=== PATIENT | female | born 1990 | race Caucasian/White ===

== ENCOUNTER 2018-06-28 15:03 | Observation (INO) | payer OTHER ==
[2018-06-28] MEDS ORDERED: Sodium Chloride 0.9% 10 ML Syringe FLUSH PRN (15:20)
[2018-06-28] MEDS ORDERED: Lactated Ringers 1,000 ML IV SCH (15:30)
[2018-06-28] MEDS ORDERED: Morphine 10 MG/ML Syringe IM ONE (16:09)
[2018-06-28] MEDS ORDERED: hydrOXYzine HCl 25 MG/ML SDV IM ONE (16:10)
[2018-06-28] MEDS ORDERED: cefOXitin 2 GM in Premix Bag 1 BAG IV SCH (16:15)
--- NOTE | 2018-06-28 16:21 | PCM.SN ---
- Free Text/Narrative Note: 06-28-18 [id number] Called to OB regarding a patient with difficult IV accessibility. Multiple attempts by the nursing staff were made with no success. Left forearm chloraprepped. Skin localized with 1% buffered lidocaine. A 20 ga 1.88" IV catheter was placed x1 attempt to left forearm under ultrasound guidance. 4ml of blood was aspirated for lab testing. Catheter flushed well. Patient tolerated well. 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
[2018-06-28] MEDS ORDERED: Betamethasone Acetate/Betamethasone Sod Phosphate 30 MG/5 ML MDV IM ONE (16:33)
--- NOTE | 2018-06-28 16:44 | PCM.LDHP ---
L&D History of Present Illness - General Date of Service: 06/28/18 Admit Problem/Dx: Patient Status Order with Admit Dx/Problem 06/28/18 15:21 Patient Status [ADT] Routine Admission Diagnosis/Problem Admission Diagnosis/Problem Source of Information: Patient History Limitations: Reports: No Limitations - History of Present Illness Introduction:: 27 y/o LMP approximately 01/25/2018 and VINAY by patient history 2017. By USG just obtained VINAY approximately 09/01/2018 at EGA 30wd (late USG). Patient presented to labor and delivery with no care. Just recently moved to [facility]. Patient had been seen 1 time in [facility] prior to moving here approximately 1 month ago. She stated she had been on Macrobid 100 mg by mouth twice a day for a month because of a "urinary tract infection" approximately 2 hours ago patient developed onset of abdominal cramping in the lower abdomen no nausea and vomiting. No right or left flank pain. No vaginal bleeding. Will obtain urinalysis when patient is able to void. Will strain urine's encase possible urinary tract stones. Urinalysis microscopic and culture ordered. New OB labs ordered. No history of gush of fluid. Ultrasound report pending but estimated gestational age by this ultrasound obtained today 30 weeks and 5 days VINAY approximately 09/01/18. Amnionic fluid index 15+ cervix 3 cm plus in length and nurse exam revealed cervix closed. Patient on presentation to labor and delivery having contractions every 1-2 minutes. Will give IV hydration and by mouth hydration. Patient started on Mefoxin 2 g initially and will continue IV every 6 hours. For pain relief morphine 5 mg and Vistaril 25 mg given IM at approximately 1620 hrs. Will repeat this every 6 hours as needed for pain relief. With holding subcutaneous terbutaline at present time because of patient's tachycardia. Patient has no history of labor with previous pregnancies. Both deliveries were term pregnancies. Group B strep was collected at time of pelvic exam before the pelvic examination was performed. Because of her contractions will give Celestone 12 mg IM now and repeat in 24 hours. Will plan new OB visit in 1 week. Discussed with patient and need to transfer to [place] if cervical changes her contractions do not subside with treatment. Pain Score: 10 Improves with: Reports: None Worsens with: Reports: None Associated Symptoms: Reports: N - Related Data Allergies/Adverse Reactions: Allergies Allergy/AdvReac Type Severity Reaction Status Date / Time No Known Allergies Allergy Verified 06/28/18 16:09 H&P Review of Systems - Review of Systems: Review Of Systems: See Below General: Reports: No Symptoms HEENT: Reports: No Symptoms Pulmonary: Reports: No Symptoms Cardiovascular: Reports: No Symptoms Gastrointestinal: Reports: Abdominal Pain (Bilateral suprapubic pain no CVA pain no right upper quadrant pain no mid right abdominal pain.) Genitourinary: Reports: Pain (Pain with urination no blood in the urine.) Musculoskeletal: Reports: No Symptoms Skin: Reports: No Symptoms Psychiatric: Reports: No Symptoms Neurological: Reports: No Symptoms Hematologic/Lymphatic: Reports: No Symptoms Immunologic: Reports: No Symptoms L&D Exam - Exam Exam: See Below - Vital Signs Weight: 135 lb - OB Specific Fundal Height In cm: 30 Contraction Intensity: Mild to Moderate Movement: Active Heart Tones: Present Heart Tones per Min: 160 Heart Rate (FHR) Variability: Moderate (6-25 bmp) Presentation: Vertex - Miller Score Miller Score Cervix Position: Anterior Miller Score Consistency: Soft Miller Score Effacement: 31-50% Miller Score Dilation: 1-2 cm Miller Score 's Station: -3 Miller Score Total: 6 - Exam General: Alert, Oriented HEENT: Conjunctiva Clear, Mucosa Moist & [place], PERRLA Neck: Supple, Trachea Midline Lungs: Clear to Auscultation, Normal Respiratory Effort Cardiovascular: Regular Rate, Regular Rhythm GI/Abdominal Exam: Normal Bowel Sounds, Soft, Non-Tender Genitourinary: Normal external exam Back Exam: Normal Inspection, Full Range of Motion Extremities: Normal Inspection, Normal Range of Motion, Non-Tender, No Pedal Edema, Normal Capillary Refill Skin: Warm, Dry, Intact Neurological: Reflexes Equal Bilateral Psychiatric: Alert, Normal Affect, Normal Mood - Patient Data Lab Results Last 24 hrs: Laboratory Results - last 24 hr 06/28/18 Range/Units 16:03 WBC 7.24 (3.98-10.04) K/mm3 RBC 4.26 (3.98-5.22) M/mm3 Hgb 12.5 (11.2-15.7) gm/L Hct 38.3 (34.1-44.9) % MCV 89.9 (79.4-94.8) fl MCH 29.3 (25.6-32.2) pg MCHC 32.6 (32.2-35.5) g/dl RDW Std Deviation 44.7 (36.4-46.3) fL Plt Count 182 (182-369) K/mm3 MPV 9.3 L (9.4-12.3) fl Neut % (Auto) 92.4 H (34.0-71.1) % Lymph % (Auto) 6.1 L (19.3-51.7) % Hardy % (Auto) 0.3 L (4.7-12.5) % Eos % (Auto) 0.4 L (0.7-5.8) Baso % (Auto) 0.1 (0.1-1.2) % Neut # (Auto) 6.69 H (1.56-6.13) K/mm3 Lymph # (Auto) 0.44 L (1.18-3.74) K/mm3 Hardy # (Auto) 0.02 L (0.24-0.36) K/mm3 Eos # (Auto) 0.03 L (0.04-0.36) K/mm3 Baso # (Auto) 0.01 (0.01-0.08) K/mm3 Result Diagrams: 06/28/18 16:03 - Problem List (1) 30 weeks gestation of SNOMED Code(s): 90082143 ICD Code: Z3A.30 - 30 WEEKS GESTATION OF Status: Acute Current Visit: Yes (2) Threatened labor, antepartum SNOMED Code(s): 067493967 ICD Code: O47.00 - FALSE LABOR BEFORE 37 COMPLETED WEEKS OF GEST, UNSP TRI Status: Acute Current Visit: Yes Problem List Initiated/Reviewed/Updated: No Orders Last 24hrs: Active Orders 24 hr Category Date Time Status Patient Status [ADT] Routine ADT 06/28/18 15:21 Active Non Stress Test [RC] PER UNIT ROUTINE Care 06/28/18 15:21 Active Peripheral IV Care [RC] . DIRECTED Care 06/28/18 15:22 Active Vaginal Exam [RC] PRN Care 06/28/18 15:21 Active Vital Signs [RC] PER UNIT ROUTINE Care 06/28/18 15:21 Active OB Ltd 1 or More Fetus [US] Stat Exams 06/28/18 15:29 Ordered Retroperitoneal Comp [US] Stat Exams 06/28/18 15:29 Ordered CBC WITH AUTO DIFF [HEME] Urgent Lab 06/28/18 16:03 Results DRUG SCREEN, URINE [URCHEM] Stat Lab 06/28/18 15:20 Ordered GROUP B STREP BY PCR [MOLEC] Stat Lab 06/28/18 15:40 Received HEPATITIS B SURFACE AG [CHEM] Stat Lab 06/28/18 16:03 Received HIV RAPID SCREEN RLFX COMFIRM [CHEM] Urgent Lab 06/28/18 16:03 Received RAPID PLASMA REAGIN,RPR [CHEM] Stat Lab 06/28/18 16:03 Received RUBELLA ANTIBODY IGG [CHEM] Stat Lab 06/28/18 16:03 Received TYPE AND SCREEN [BBK] Urgent Lab 06/28/18 16:03 Received UA W/MICROSCOPIC [URIN] Stat Lab 06/28/18 15:20 Ordered Betamet Acet/Betamet Na Phos [Celestone Soluspan 6 MG/ Med 06/28/18 16:33 Once ML] 12 mg IM ONETIME ONE Lactated Ringers [Ringers, Lactated] 1,000 ml Med 06/28/18 15:30 Active IV .BOLUS Sodium Chloride 0.9% [Saline Flush] Med 06/28/18 15:20 Active 10 ml FLUSH ASDIRECTED PRN cefOXitin [Mefoxin in Dextrose,Iso-Osm 2 GM/50 ML] 2 gm Med 06/28/18 16:15 Active Premix Bag 1 bag IV .ONETIME OB Panel [OM.PC] Stat Oth 06/28/18 15:20 Ordered Peripheral IV Insertion Adult [OM.PC] Urgent Oth 06/28/18 15:20 Ordered Resuscitation Status Routine Resus Stat 06/28/18 15:20 Ordered Medication Orders Betamethasone Acet/Betameth SodPhos (Celestone Soluspan 6 Mg/Ml) 12 mg IM ONETIME ONE Stop: 06/28/18 16:34 Lactated Ringer's (Ringers, Lactated) 1,000 mls @ 500 mls/hr IV .BOLUS DEBBIE Cefoxitin Sodium 2 gm/ Premix 50 mls @ 100 mls/hr IV .ONETIME DEBBIE Sodium Chloride (Saline Flush) 10 ml FLUSH ASDIRECTED PRN PRN Reason: Keep Vein Open Assessment/Plan Comment:: Observation status. Orders written
--- NOTE | 2018-06-28 16:57 | US ---
Obstetrical ultrasound: Multiple real-time images were obtained. Comparison: No previous studies from current . Dates: Current ultrasound: VINAY 09/01/18, gestational age 30 weeks 5 days presentation: Cephalic Placenta: Anterior with no findings of placenta previa Amniotic fluid: BALDEMAR 15.3 cm Measurements: BPD: 7.43 cm - 29 weeks 6 days Head circumference: 28.92 cm - 31 weeks 6 days Abdominal circumference: 26.62 cm - 30 weeks 5 days Femur length: 5.78 cm - 30 weeks 2 days Estimated weight: 1605 g (3 lbs. 9 oz.) is, estimated weight above the 97th percentile Heart rate: 154 bpm Cervical length: 3.1 cm Impression: 1. Single intrauterine fetus currently cephalic in presentation. Dates as noted above. 2. No complicating process is seen by ultrasound at this time. Anatomic survey was not performed. Diagnostic code #1
--- NOTE | 2018-06-28 16:57 | US ---
Renal ultrasound: Multiple real-time images of the kidneys were obtained. Comparison: No previous renal imaging. Kidneys show no hydronephrosis or mass. Right kidney measures 12.3 cm in length. Left kidney measures 13.6 cm in length. Resistivity indices are normal. Bladder empties completely on postvoid exam. Impression: 1. No abnormality is identified on renal ultrasound exam. Diagnostic code #1
[2018-06-28] MEDS: Lactated Ringers 1,000 ML IV SCH ×2 (17:05→19:48)
[2018-06-28] MEDS ORDERED: hydrOXYzine HCl 25 MG/ML SDV IM PRN (23:00)
[2018-06-28] MEDS ORDERED: Morphine 10 MG/ML Syringe IM PRN (23:00)
[2018-06-28] MEDS: cefOXitin 2 GM in Premix Bag 1 BAG IV SCH (23:46)
[2018-06-29] MEDS: cefOXitin 2 GM in Premix Bag 1 BAG IV SCH ×3 (06:40→12:46)
--- NOTE | 2018-06-29 07:39 | PCM.SN ---
- Free Text/Narrative Note: UDS positive and patient then admitted to Methamphetamine use. Also states she has been using Suboxone as well. Looks and feels better this morning. Will give second dose of Celestone this afternoon. marketing services vice president needs to see patient.
[2018-06-29] MEDS: hydrOXYzine HCl 25 MG Tab PO PRN ×2 (08:59→15:13)
[2018-06-29] MEDS: Lactated Ringers 1,000 ML IV SCH (11:29)
--- NOTE | 2018-06-29 16:23 | PCM.DCSUM1 ---
Discharge Summary - Hospital Course Free Text/Narrative:: Patient admitted for threatened labor Patient admitted to illicit drug use methamphetamine just prior to her onset of symptoms. Contractions have subsided. Patient has been set up with [facility] and seen by renal social worker. Patient has new OB appointment in 1 week Informed patient that threatened labor probably caused by the "Line" of meth she had done prior to onset of symptoms, discussed possible abruptio placentae and and even maternal related to same. Patient states she wants to discontinue using illicit drug and has been seen by [facility] as noted above. Patient states she is willing to have random urine drug screens performed in the clinic and [facility] also planning to do same HPI Initial Comments: Patient admitted for threatened labor Patient admitted to illicit drug use methamphetamine just prior to her onset of symptoms. Contractions have subsided. Patient has been set up with [facility] and seen by renal social worker. Patient has new OB appointment in 1 week Informed patient that threatened labor probably caused by the "Line" of meth she had done prior to onset of symptoms, discussed possible abruptio placentae and and even maternal related to same. Patient states she wants to discontinue using illicit drug and has been seen by [facility] as noted above. Patient states she is willing to have random urine drug screens performed in the clinic and [facility] also planning to do same Brief History: Patient admitted for threatened labor. Patient admitted to illicit drug use methamphetamine just prior to her onset of symptoms. Contractions have subsided. Patient has been set up with [facility] and seen by renal social worker. Patient has new OB appointment in 1 week. Informed patient that threatened labor probably caused by the "Line" of meth she had done prior to onset of symptoms, discussed possible abruptio placentae and and even maternal related to same. Patient states she wants to discontinue using illicit drug and has been seen by [facility] as noted above. Patient states she is willing to have random urine drug screens performed in the clinic and [facility] also planning to do same Diagnosis: Stroke: No - Discharge Data Discharge Date: 06/29/18 Discharge Disposition: Home, Self-Care 01 Condition: Good - Discharge Diagnosis/Problem(s) (1) 30 weeks gestation of SNOMED Code(s): 00343883 ICD Code: Z3A.30 - 30 WEEKS GESTATION OF Status: Acute Current Visit: Yes (2) Threatened labor, antepartum SNOMED Code(s): 843814158 ICD Code: O47.00 - FALSE LABOR BEFORE 37 COMPLETED WEEKS OF GEST, UNSP TRI Status: Acute Current Visit: Yes (3) Substance abuse affecting in third trimester, antepartum SNOMED Code(s): 76828903, 38383830, 878318372 ICD Code: O99.323 - DRUG USE COMPLICATING , THIRD TRIMESTER Status : Acute Current Visit: Yes - Patient Summary/Data Complications: None Consults: Consultations 06/28/18 20:00 Consult to Metal Bumper [CONS] Routine Hospital Course: Uneventful - Patient Instructions Diet: Regular Diet as Tolerated Driving: Do Not Drive (For 24 hours or while using illicit drugs) Showering/Bathing: May Shower Notify Provider of: Fever, Increased Pain, Swelling and Redness, Drainage, Nausea and/or Vomiting - Discharge Plan *PRESCRIPTION DRUG MONITORING PROGRAM REVIEWED*: Not Applicable *COPY OF PRESCRIPTION DRUG MONITORING REPORT IN PATIENT EFE: Not Applicable Home Medications: Home Meds Buprenorphine HCl 1 tab PO DAILY 06/28/18 [History] Referrals: Douglas Moore MD [Physician] - (Patient has new OB appointment for next week) - Discharge Summary/Plan Comment DC Time >30 min.: No - Patient Data Vitals - Most Recent: Last Vital Signs Temp 96.9 F 06/29/18 15:14 Pulse 106 H 06/29/18 15:14 Resp 20 06/29/18 08:50 BP 101/63 06/29/18 15:14 Pulse Ox 100 06/28/18 15:21 Weight - Most Recent: 135 lb I&O - Last 24 hours: Intake & Output 06/29/18 06/29/18 06/29/18 06:59 14:59 22:59 Intake Total 1360 Balance 1360 Lab Results - Last 24 hrs: Laboratory Results - last 24 hr 06/28/18 06/28/18 06/28/18 Range/Units 15:40 16:03 16:03 Manual Slide Review Normal smear Urine Color (Yellow) Urine Appearance (Clear) Urine pH (5.0-8.0) Ur Specific [place] (1.005-1.030) Urine Protein (Negative) Urine Glucose (UA) (Negative) Urine Ketones (Negative) Urine Occult Blood (Negative) Urine Nitrite (Negative) Urine Bilirubin (Negative) Urine Urobilinogen (0.2-1.0) Ur Leukocyte Esterase (Negative) Urine RBC (0-5) /hpf Urine WBC (0-5) /hpf Ur Epithelial Cells (0-5) /hpf Urine Bacteria (FEW) /hpf Urine Mucus (FEW) /hpf Urine Opiates Screen (NEGATIVE) Ur Buprenorphine Scrn (NEGATIVE) Ur Oxycodone Screen (NEGATIVE) Urine Methadone Screen (NEGATIVE) Ur Propoxyphene Screen (NEGATIVE) Ur Barbiturates Screen (NEGATIVE) Ur Tricyclics Screen (NEGATIVE) Ur Phencyclidine Scrn (NEGATIVE) Ur Amphetamine Screen (NEGATIVE) U Methamphetamines Scrn (NEGATIVE) U Benzodiazepines Scrn (NEGATIVE) U Cocaine Metab Screen (NEGATIVE) U Marijuana (THC) Screen (NEGATIVE) RPR Non-reactive (NONREACTIVE) HIV-1 Ab Rapid Screen (NEGATIVE) Group B Strep (PCR) Negative (NEGATIVE) Blood Type Gel Antibody Screen 06/28/18 06/28/18 06/28/18 Range/Units 16:03 16:03 16:40 Manual Slide Review Urine Color Yellow (Yellow) Urine Appearance Slt cloudy H (Clear) Urine pH 7.0 (5.0-8.0) Ur Specific [place] 1.015 (1.005-1.030) Urine Protein Trace H (Negative) Urine Glucose (UA) Negative (Negative) Urine Ketones Negative (Negative) Urine Occult Blood Negative (Negative) Urine Nitrite Negative (Negative) Urine Bilirubin Negative (Negative) Urine Urobilinogen 0.2 (0.2-1.0) Ur Leukocyte Esterase Negative (Negative) Urine RBC 0-5 (0-5) /hpf Urine WBC 0-5 (0-5) /hpf Ur Epithelial Cells 0-5 (0-5) /hpf Urine Bacteria Moderate H (FEW) /hpf Urine Mucus Not seen (FEW) /hpf Urine Opiates Screen (NEGATIVE) Ur Buprenorphine Scrn (NEGATIVE) Ur Oxycodone Screen (NEGATIVE) Urine Methadone Screen (NEGATIVE) Ur Propoxyphene Screen (NEGATIVE) Ur Barbiturates Screen (NEGATIVE) Ur Tricyclics Screen (NEGATIVE) Ur Phencyclidine Scrn (NEGATIVE) Ur Amphetamine Screen (NEGATIVE) U Methamphetamines Scrn (NEGATIVE) U Benzodiazepines Scrn (NEGATIVE) U Cocaine Metab Screen (NEGATIVE) U Marijuana (THC) Screen (NEGATIVE) RPR (NONREACTIVE) HIV-1 Ab Rapid Screen Negative (NEGATIVE) Group B Strep (PCR) (NEGATIVE) Blood Type O NEGATIVE Gel Antibody Screen Negative 06/28/18 Range/Units 16:40 Manual Slide Review Urine Color (Yellow) Urine Appearance (Clear) Urine pH (5.0-8.0) Ur Specific [place] (1.005-1.030) Urine Protein (Negative) Urine Glucose (UA) (Negative) Urine Ketones (Negative) Urine Occult Blood (Negative) Urine Nitrite (Negative) Urine Bilirubin (Negative) Urine Urobilinogen (0.2-1.0) Ur Leukocyte Esterase (Negative) Urine RBC (0-5) /hpf Urine WBC (0-5) /hpf Ur Epithelial Cells (0-5) /hpf Urine Bacteria (FEW) /hpf Urine Mucus (FEW) /hpf Urine Opiates Screen Presumptive positive H (NEGATIVE) Ur Buprenorphine Scrn Presumptive positive H (NEGATIVE) Ur Oxycodone Screen Negative (NEGATIVE) Urine Methadone Screen Negative (NEGATIVE) Ur Propoxyphene Screen Negative (NEGATIVE) Ur Barbiturates Screen Negative (NEGATIVE) Ur Tricyclics Screen Negative (NEGATIVE) Ur Phencyclidine Scrn Negative (NEGATIVE) Ur Amphetamine Screen Presumptive positive H (NEGATIVE) U Methamphetamines Scrn Presumptive positive H (NEGATIVE) U Benzodiazepines Scrn Negative (NEGATIVE) U Cocaine Metab Screen Negative (NEGATIVE) U Marijuana (THC) Screen Presumptive positive H (NEGATIVE) RPR (NONREACTIVE) HIV-1 Ab Rapid Screen (NEGATIVE) Group B Strep (PCR) (NEGATIVE) Blood Type Gel Antibody Screen Med Orders - Current: Current Medications Betamethasone Acet/Betameth SodPhos (Celestone Soluspan 6 Mg/Ml) 12 mg IM ONETIME ONE Stop: 06/29/18 16:31 Hydroxyzine HCl (Atarax) 25 mg PO Q6H PRN PRN Reason: Anxiety Last Admin: 06/29/18 15:13 Dose: 25 mg Lactated Ringer's (Ringers, Lactated) 1,000 mls @ 500 mls/hr IV .BOLUS DEBBIE Last Admin: 06/28/18 16:10 Dose: 500 mls/hr Lactated Ringer's (Ringers, Lactated) 1,000 mls @ 125 mls/hr IV ASDIRECTED DEBBIE Last Admin: 06/29/18 11:29 Dose: 125 mls/hr Buprenorphine Hcl 8 (Mg) 0 each PO DAILY [facility] Sodium Chloride (Saline Flush) 10 ml FLUSH ASDIRECTED PRN PRN Reason: Keep Vein Open Discontinued Medications Betamethasone Acet/Betameth SodPhos (Celestone Soluspan 6 Mg/Ml) 12 mg IM ONETIME ONE Stop: 06/28/18 16:34 Last Admin: 06/28/18 16:59 Dose: 12 mg Hydroxyzine HCl (Vistaril) 25 mg IM ONETIME ONE Stop: 06/28/18 16:11 Last Admin: 06/28/18 16:27 Dose: 25 mg Hydroxyzine HCl (Vistaril) 25 mg IM Q6H PRN PRN Reason: Pain Last Admin: 06/29/18 01:01 Dose: 25 mg Cefoxitin Sodium 2 gm/ Premix 50 mls @ 100 mls/hr IV .ONETIME [facility] Last Admin: 06/28/18 17:01 Dose: 100 mls/hr Cefoxitin Sodium 2 gm/ Premix 50 mls @ 100 mls/hr IV Q6HR DEBBIE Stop: 06/29/18 12:29 Last Admin: 06/29/18 12:46 Dose: 100 mls/hr Morphine Sulfate (Morphine) 5 mg IM ONETIME ONE Stop: 06/28/18 16:10 Last Admin: 06/28/18 16:27 Dose: 5 mg Morphine Sulfate (Morphine) 5 mg IM Q6H PRN PRN Reason: Pain Last Admin: 06/29/18 01:02 Dose: 5 mg
[2018-06-29] MEDS ORDERED: Betamethasone Acetate/Betamethasone Sod Phosphate 30 MG/5 ML MDV IM ONE (16:30)
== END 2018-06-29 16:47 | disposition home or self-care (01) ==
LOC: JD.OBCHECK 15:03 → JD.OB 15:08 → JD.OBCHECK 15:21 → JD.OB 15:21
PROVIDERS: ADMIT Obstetrics & Gynecology; ATTEND Obstetrics & Gynecology
DX: O47.03 False labor before 37 completed weeks of gestation, third trimester (principal); O99.323 Drug use complicating pregnancy, third trimester; F15.10 Other stimulant abuse, uncomplicated; Z3A.30 30 weeks gestation of pregnancy
CPT/HCPCS: 36415; 59025; 76770; 76815; 80306; 81001; 85025; 86592; 86762; 86850; 86900; 86901; 87340; 87653; 96361; 96365; 96372; 96376; A9270; G0378; G0433; G0480; J0694; J0702; J2270; J3410; J7120